=== PATIENT | male | born 1985 | race African-American/Black ===

== ENCOUNTER 2018-11-03 06:55 | Emergency (ER) | payer MEDICAID ==
[~2018-11-03] VITALS: Ht 162.6 cm; Wt 82.0 kg
[2018-11-03] MEDS ORDERED: SODIUM CHLORIDE 0.9% 1,000 ML IV ONE ×2 (07:29→08:33)
[2018-11-03] MEDS ORDERED: KETOROLAC 30MG/ML VIAL IV STA (07:29)
[2018-11-03 08:14] LABS: CHLORIDE 106 mEq/L (98-107)
[2018-11-03 08:16] LABS: PROTHROMBIN TIME 10.2 sec (9.6-11.0)
[2018-11-03 08:20] LABS: BASOPHILS % 0.5 % (0.0-2.0); EOSINOPHILS % 5.7 % (0.0-5.0); HEMATOCRIT. 49.9 % (42.0-52.0); HEMOGLOBIN. 17.5 g/dL (14.0-18.0); LYMPHOCYTES % 40.7 % (20.0-50.0); MEAN CORPUSCULAR HEMOGLOBIN 33.2 pg (28.0-32.0); MEAN CORPUSCULAR VOLUME 94.7 fL (80.0-94.0); MEAN PLATELET VOLUME 10.2 fl (7.4-10.4); NEUTROPHILS % 43.1 % (40.0-76.0); PLATELET 153 x1000/uL (130-400); RED BLOOD CELL COUNT 5.27 mill/uL (4.7-6.1); RED CELL DISTRIBUTION WIDTH 13.7 % (11.6-14.6)
[2018-11-03] MEDS ORDERED: CEFTRIAXONE 1 G PREMIX 50 ML IV ONE (08:45)
[2018-11-03] MEDS ORDERED: TAMSULOSIN HCL 0.4MG SR CAPSULE PO ONE (08:45)
[2018-11-03 09:04] LABS: CLARITY URINE CLEAR (CLEAR); COLOR URINE YELLOW (YELLOW); KETONES URINE TRACE (NEGATIVE); LEUKOCYTE ESTERASE URINE NEGATIVE (NEGATIVE); NITRITE URINE NEGATIVE (NEGATIVE); OCCULT BLOOD URINE 3+ (NEGATIVE); PH URINE 5.5 (4.5-8.0); PROTEIN URINE 2+ (NEGATIVE); SPECIFIC GRAVITY URINE 1.037 (1.005-1.030)
[2018-11-03 10:30] VITALS: BP 132/84
== END 2018-11-03 10:30 | disposition home or self-care (01) ==
LOC: ER 07:06
DX: N13.2 Hydronephrosis with renal and ureteral calculous obstruction (principal); I10 Essential (primary) hypertension
CPT/HCPCS: 36415; 74176; 80053; 81003; 83690; 85025; 85610; 87086; 96361; 96365; 96375; 99284; J0696; J1885; J7030

== ENCOUNTER 2021-02-06 09:14 | Emergency (ER) | payer MEDICAID ==
[~2021-02-06] VITALS: Ht 167.6 cm; Wt 8.0 kg
[2021-02-06 09:42] VITALS: BP 129/86
[2021-02-06] MEDS ORDERED: IBUPROFEN 600MG TABLET PO ONE (09:45)
[2021-02-06] MEDS ORDERED: LIDOCAINE HCL/EPINEPHRINE 1%-EPI 1:100,000 20 ML VIAL INFIL ONE (09:45)
[2021-02-06] MEDS ORDERED: BACITRACIN ZINC OINT UDPKT TOP ONE (09:45)
[2021-02-06] MEDS ORDERED: SULF1TAB48 MT (10:02)
[2021-02-06] MEDS ORDERED: IBUP-2028 MT (10:02)
[2021-02-06] MEDS ORDERED: CEPH500C2 MT (10:02)
== END 2021-02-06 10:09 | disposition home or self-care (01) ==
LOC: ER 09:14
DX: L73.2 Hidradenitis suppurativa (principal)
CPT/HCPCS: 10060; 99283; A4217; J3490; Z7610